=== PATIENT | male | born 1950 | race Caucasian/White ===

== ENCOUNTER 2020-03-16 09:23 | Emergency (ER) | payer MEDICARE, SELFPAY ==
--- NOTE | ~2020-03-16 | CT_ITS ---
EXAMINATION: CT cervical spine [facility] EXAM DATE: 03/16/2020 10:37 INDICATION: Right-sided neck pain, chronic. TECHNIQUE: Spiral CT of the cervical spine was performed without contrast. Axial images were reviewe d. Coronal and sagittal reformatted images were also reviewed. The dose-length product (DLP) for thi s examination was 289.38 mGy-cm. The exposure was tailored according to patient size (auto mA exposu re control), and iterative reconstruction (ASIR) was used as additional dose reduction technique. Counts include 234 beds at the [facility] is no prior study for comparison. FINDINGS: There is moderate to severe disc disease C4-7. 2 mm anterolisthesis C7 on T1 and C3 on C4. The vertebral bodies are otherwise aligned. The odontoid process is intact. The lateral masses of C 1 line up with C2. Prevertebral soft tissue and pre-dens space are within normal limits. There are no acute fractures identified. Completely opacified left ethmoid and maxillary sinuses, mild right eth moid and maxillary mucoperiosteal thickening. Level by level evaluation: C2-C3: Disc does not extend beyond the endplate margin. Uncovertebral joint arthropathy: Mild right. Facet joint arthropathy: Moderate right, mild left. Neural foraminal stenosis: Mild right. Central canal stenosis: No stenosis. C3-C4: There is a mild diffuse disc bulge. Uncovertebral joint arthropathy: Mild to moderate right, mild left. Facet joint arthropathy: Moderate to severe right, mild to moderate left. Neural foraminal stenosis: Moderate right, mild left. Central canal stenosis: Mild. C4-C5: There is a mild diffuse disc bulge. Uncovertebral joint arthropathy: Moderate bilateral. Facet joint arthropathy: Moderate bilateral. Neural foraminal stenosis: Moderate right, mild left. Central canal stenosis: Mild. C5-C6: There is a mild diffuse disc bulge. Uncovertebral joint arthropathy: Moderate to severe bilateral. Facet joint arthropathy: Mild to moderate bilateral. Neural foraminal stenosis: Mild to moderate bilateral. Central canal stenosis: Mild. C6-C7: There is a mild diffuse disc bulge. Uncovertebral joint arthropathy: Moderate to severe right, mild to moderate left. Facet joint arthropathy: Mild bilateral. Neural foraminal stenosis: Moderate right, mild left. Central canal stenosis: Mild. C7-T1: There is a minimal diffuse disc bulge. Uncovertebral joint arthropathy: None. Facet joint arthropathy: Moderate to severe left. Neural foraminal stenosis: Mild to moderate left. Central canal stenosis: No stenosis. IMPRESSION: 1. Advanced lower cervical disc disease, and varying degrees of cervical facet arthropathy as detaile d above. 2. Opacified left ethmoid and maxillary sinuses. Reviewed, dictated and finalized at location B. IMPRESSION: 1. Advanced lower cervical disc disease, and varying degrees of cervical facet arthropathy as detailed above. 2. Opacified left ethmoid and maxillary sinuses.
[2020-03-16 09:34] VITALS: BP 161/81; PULSE 85; RESP 18; TEMP 37.1; O2SAT 97
--- NOTE | 2020-03-16 10:27 | ED.NECK ---
HPI - Neck Pain/Injury General Chief Complaint: Neck Pain/Injury Stated Complaint: Neck pain Time Seen by Provider: 03/16/20 10:06 Source: patient Mode of arrival: ambulatory Limitations: no limitations History of Present Illness HPI Narrative: This is a 69-year-old male that presents the emergency department for right-sided neck pain x3 days. No known recent injury or trauma. He notes an injury to the neck years ago after which she is been having problems with the neck intermittently. Reports pain is on the right side of his neck and radiates into his shoulder. It is worse with movement and relieved with rest. He took ibuprofen last night with some relief. Denies fever, headache, vision changes, vomiting, numbness or weakness. Related Data Home Medications Medication Instructions Recorded Confirmed Symbicort 07/01/19 Allergies Allergy/AdvReac Type Severity Reaction Status Date / Time No Known Allergies Allergy Unverified 03/16/20 09:38 Review of Systems Review of Systems: Narrative: CONSTITUTIONAL: Denies fever EYES: Denies visual changes GASTROINTESTINAL: Denies vomiting SKIN: Denies rash MUSCULOSKELETAL: Reports joint pain, and myalgia. NEUROLOGIC: Denies headache, numbness, or weakness. All systems reviewed & are unremarkable except as noted in HPI and below PMFSH Past Medical History Medical History (Updated 03/16/20 @ 12:03 by Roxana Del Toro PA-C) Emphysema of lung Prostate cancer Surgical History Surgical History H/O bilateral cataract extraction H/O prostate biopsy History of carpal tunnel release Family History Family History (Updated 10/08/18 @ 09:57 by DOCTOR UNKNOWN) Father Family history of malignant neoplasm Social History Social History Smoking status: Former smoker Smoking end date: 06/26/97 Alcohol intake: never Gender identity (if verbalized by the patient): Male Exam Narrative: Exam Narrative: GENERAL: Well-appearing, well-nourished, and in no acute distress. HEAD: Normocephalic, atraumatic. EYES: PERRLA and EOMI. ENT: Nares clear, no rhinorrhea or epistaxis. Mucous membranes moist. Oropharynx without tonsillar hypertrophy exudate or other lesions. Bilateral TMs pearly dove non-bulging NECK: Supple. No adenopathy or masses. No carotid bruits or JVD CHEST: Clear to auscultation. No respiratory distress. No wheezes rales or rhonchi HEART: Regular rate and rhythm. No murmur heard. Normal peripheral pulses. EXTREMITIES: Normal range of motion. No edema. Strength equal in bilateral upper extremities (5/5) SKIN: Warm, dry, no rash. NEURO: No focal deficits. Alert and oriented x3. Cranial nerves II through XII grossly intact PSYCH: Normal mood and affect Course Vital Signs Vital signs: Vital Signs Temperature 98.7 F 03/16/20 09:34 Pulse Rate 85 03/16/20 09:34 Respiratory Rate 18 03/16/20 09:34 Blood Pressure 161/81 H 03/16/20 09:34 Pulse Oximetry 97 03/16/20 09:34 Temperature 98.7 F 03/16/20 09:34 Pulse Rate 85 03/16/20 09:34 Respiratory Rate 18 03/16/20 09:34 Blood Pressure 161/81 H 03/16/20 09:34 Pulse Oximetry 97 03/16/20 09:34 MDM - Neck Pain/Injury MDM Narrative Medical decision making narrative: Patient presents to the emergency department for neck pain times 3 days. No known certain injury or trauma. Patient does report he was kayaking prior to his neck pain starting. Pain seems to be muscular in nature. It is more right-sided and he is tender to palpation of the trapezius musculature. He is neurologically intact. CT scan cervical spine shows cervical disc disease and arthropathy. Patient was updated on case findings. He was given a dose of Toradol with some relief. Will be sent home with muscle relaxer as needed as well. He is to follow-up with his primary care doctor. He was given warnings to return to
[2020-03-16] MEDS: KETOROLAC 30 MG/ML VIAL (*BKC) IM (11:09)
[2020-03-16 12:28] VITALS: BP 160/78; PULSE 86; RESP 18; O2SAT 98
== END 2020-03-16 12:30 | disposition home or self-care (01) ==
PROVIDERS: Emergency Provider Emergency Medicine
DX: M47.812 Spondylosis without myelopathy or radiculopathy, cervical region (principal); S16.1XXA Strain of muscle, fascia and tendon at neck level, initial encounter; Z85.46 Personal history of malignant neoplasm of prostate; J43.9 Emphysema, unspecified; Z98.42 Cataract extraction status, left eye; Z98.41 Cataract extraction status, right eye; Z87.891 Personal history of nicotine dependence; X58.XXXA Exposure to other specified factors, initial encounter
CPT/HCPCS: 72125; 96372; 99284; J1885

== ENCOUNTER 2020-11-19 15:15 | Emergency (ER) | payer MEDICARE, SELFPAY ==
[2020-11-19 15:15] VITALS: BP 153/94; PULSE 104; RESP 18; TEMP 37.6; O2SAT 99
[2020-11-19 16:14] LABS: Add Urine Microscopic? YES; Appearance Urine Clear (Clear); Bilirubin Urine Negative (Negative); Blood Urine 1+ (Negative); Color Urine Yellow (Yellow); Glucose Urine UA Negative (Negative); Ketones Urine Trace (Negative); Leukocyte Esterase Ur Negative (Negative); Nitrate Urine Negative (Negative); Protein Urine Negative (Negative); Urobilinogen Urine 0.2 mg/dL (0.2-1.0); pH Urine 5.5 (5.0-8.0)
[2020-11-19 16:14] LABS: Basophils Absolute Auto 0.03 K/mm3 (0.00-0.10); Basophils Percent Auto 0.2 % (0.0-1.0); Hematocrit 40.8 % (37.0-46.0); Hemoglobin 13.6 g/dL (12.4-15.3); Immature Granulocyte Absolute 0.04 K/mm3 (0.00-0.00); Immature Granulocyte Percent A 0.3 % (0.0-0.0); Lymphocytes Absolute Auto 0.81 K/mm3 (1.10-4.50); Lymphocytes Percent Auto 6.6 % (18.0-42.0); Mean Corpuscular HGB Conc 33.3 g/dL (32.0-36.0); Mean Corpuscular Hemoglobin 30.2 pg (27.0-31.0); Mean Corpuscular Volume 90.7 fL (78.0-102.0); Mean Platelet Volume 9.8 fl (8.7-11.0); Neutrophils Absolute Auto 10.3 K/mm3 (1.7-7.2); Neutrophils Percent Auto 83.9 % (50.0-70.0); Platelet Count Result 256 K/mm3 (150-420); Red Cell Distribution Width 13.3 % (11.6-14.4); White Blood Count 12.3 K/mm3 (4.8-10.8)
[2020-11-19 16:20] LABS: Bacteria Urine Trace /hpf; RBC Urine 0-2 /hpf (0-2); Squamous Epithelial Cell Urine Rare /hpf (Few); WBC Urine 0-3 /hpf (0-3)
[2020-11-19 16:33] LABS: Alanine Aminotransferase 23 U/L (16-63); Albumin Level 3.2 g/dL (3.4-5.0); Alkaline Phosphatase 65 U/L (46-116); Anion Gap 9 mmol/L (8-16); Aspartate Amino Transferase 19 U/L (15-37); Bilirubin,Total 0.6 mg/dL (0.00-1.00); Blood Urea Nitrogen 13 mg/dL (7-18); Carbon Dioxide 26 mmol/L (21-32); Chloride 103 mmol/L (98-108); Estimated CRCL calculation 57 ml/min; Estimated Glomerular Filt Rate > 60; Glucose 121 mg/dL (70-99); Osmolality Calculated 287 mOsm/kg (285-295); Potassium 3.5 mmol/L (3.5-5.1); Sodium 138 mmol/L (136-145); Total Protein 6.6 g/dL (6.4-8.2)
--- NOTE | 2020-11-19 16:38 | ED.FEMALEGU ---
HPI - Female Genitourinary General Chief complaint: Urogenital-Male Stated complaint: trouble urinating Source: patient Mode of arrival: ambulatory Limitations: no limitations History of Present Illness HPI Narrative: this is a 70-year-old male with some past medical history of BPH with prostate cancers followed by urology, recently had surgery on his right hand and was under general anesthesia, for the last couple days he has been having urinary retention and presented today with some inability to pass urine had a bladder distension and tenderness with no fever chills no hematuria no dysuria no chest pain no abdominal pain no shortness of breath no nausea or vomiting. MD elicited complaint: difficulty urinating Onset (ago): day(s) Location of symptoms: suprapubic Related Data Home Medications Medication Instructions Recorded Confirmed budesonide-formoterol [Symbicort] 2 puff INHALATION Q12H 11/19/20 11/19/20 finasteride 5 mg PO DAILY 11/19/20 11/19/20 hydrocodone-acetaminophen 1 tablet PO Q6H PRN 11/19/20 11/19/20 ipratropium-albuterol [Combivent 1 puff INHALATION QID 11/19/20 11/19/20 Respimat] Allergies Allergy/AdvReac Type Severity Reaction Status Date / Time No Known Allergies Allergy Unverified 03/16/20 09:38 Review of Systems Review of Systems: All systems reviewed & are unremarkable except as noted in HPI and below PMFSH Past Medical History Medical History Emphysema of lung Prostate cancer Surgical History Surgical History H/O bilateral cataract extraction H/O prostate biopsy History of carpal tunnel release Family History Family History Father Family history of malignant neoplasm Social History Social History Smoking status: Former smoker Smoking end date: 06/26/97 Alcohol intake: never Gender identity (if verbalized by the patient): Male Exam Const: General: no acute distress Orientation/consciousness: patient oriented x3 HENMT: Head: normal to inspection Eyes: Conjunctivae: conjunctivae normal Pupils: Equal, round and reactive pupils present Neck: Neck: normal visual inspection, no lymphadenopathy and no meningeal signs Chest: Chest palpation & inspection: normal inspection of the chest Resp: Effort & Inspection: normal respiratory effort Auscultation: clear to auscultation bilaterally Cardio: Rate: regular rate Rhythm: regular rhythm GI: GI Palp: Yes Soft to palpation Other: Suprapubic tenderness with palpation and distension : General: Yes Bladder palpation abnormal ( distended with tenderness with palpation) Urinary Catheter: Urinary Catheter: urine clear Back/Spine/Pelvis: Back: no CVA tenderness Skin: General skin exam: normal color Rashes: no rashes Neuro: General: patient oriented x3, moves all extremities, no meningeal signs and no focal motor deficits Psych: Mental Status: mental status grossly normal Thought content: Yes Normal thought content present Course Course Emergency Course: bladder scan revealed more than L of urine in his bladder Prabhakar was placed and immediate relief of discomfort in his bladder with some large amount of urine that drained. Will continue the Prabhakar catheter does have an appointment with his urologist on Monday. Vital Signs Vital signs: Vital Signs Temperature 37.6 C 11/19/20 15:15 Pulse Rate 104 H 11/19/20 15:15 Respiratory Rate 18 11/19/20 15:15 Blood Pressure 153/94 H 11/19/20 15:15 Pulse Oximetry 99 11/19/20 15:15 Temperature 37.6 C 11/19/20 15:15 Pulse Rate 104 H 11/19/20 15:15 Respiratory Rate 18 11/19/20 15:15 Blood Pressure 153/94 H 11/19/20 15:15 Pulse Oximetry 99 11/19/20 15:15 MDM - Female Genitourinary Lab Data Result diagrams:
== END 2020-11-19 16:50 | disposition home or self-care (01) ==
PROVIDERS: Emergency Provider Emergency Medicine
DX: R33.9 Retention of urine, unspecified (principal)
CPT/HCPCS: 36415; 80053; 81001; 85025; 99282; 99283

== ENCOUNTER 2020-11-25 00:42 | Emergency (ER) | payer MEDICARE, SELFPAY ==
[2020-11-25 01:12] VITALS: BP 176/93; PULSE 87; RESP 16; TEMP 36.2; O2SAT 98
--- NOTE | 2020-11-25 01:33 | PC.NURSE ---
Pt reports feeling much better after niño cath placement. Urine is clear. No blood.
--- NOTE | 2020-11-25 02:20 | ED.MALEGU ---
HPI - Male Genitourinary General Chief complaint: Urogenital-Male Stated complaint: unable to urinate since 1600 Time Seen by Provider: 11/25/20 02:05 Source: patient Limitations: no limitations History of Present Illness HPI Narrative: Patient is 70 years old white male presented to the ED with inability to urinate since 4 PM yesterday. Patient status post right hand surgery 1 week ago, 2 days later was not able to urinate required Prabhakar catheter placement which been removed yesterday by his urologist. Few hours later patient was not able to urinate again. Patient denies any fever, chills, nausea, vomiting, diarrhea, constipation. Patient is not taking any narcotics. Related Data Home Medications Medication Instructions Recorded Confirmed budesonide-formoterol [Symbicort] 2 puff INHALATION Q12H 11/19/20 11/19/20 finasteride 5 mg PO DAILY 11/19/20 11/19/20 hydrocodone-acetaminophen 1 tablet PO Q6H PRN 11/19/20 11/19/20 ipratropium-albuterol [Combivent 1 puff INHALATION QID 11/19/20 11/19/20 Respimat] Allergies Allergy/AdvReac Type Severity Reaction Status Date / Time No Known Allergies Allergy Verified 11/25/20 00:44 Review of Systems Review of Systems: Narrative: CONSTITUTIONAL: Denies fever, chills, or sweats. EYES: Denies visual changes, redness, or discharge. ENT: Denies rhinorrhea, congestion, sore throat, or otalgia. CARDIOVASCULAR: Denies chest pain, palpitations, or edema. RESPIRATORY: Denies cough or dyspnea. GASTROINTESTINAL: Denies abdominal pain, nausea, vomiting, or diarrhea. GENITOURINARY: Denies dysuria or hematuria. SKIN: Denies rash or itching. MUSCULOSKELETAL: Denies back pain, joint pain, or myalgia. NEUROLOGIC: Denies headache, numbness, or weakness. PSYCHIATRIC: Denies anxiety or depression. [facility] Past Medical History Medical History Emphysema of lung Prostate cancer Surgical History Surgical History H/O bilateral cataract extraction H/O prostate biopsy History of carpal tunnel release Family History Family History Father Family history of malignant neoplasm Social History Social History Smoking status: Former smoker Smoking end date: 06/26/97 Alcohol intake: never Gender identity (if verbalized by the patient): Male Exam Narrative: Exam Narrative: General appearance: Well-developed, well-nourished Skin: Normal color Chest and respiratory: Airway patent, no respiratory distress, no accessory muscle use Heart: Regular rate/rhythm Abdomen: Soft, suprapubic tenderness and distention Vascular: Normal peripheral pulses, normal capillary refill. Neurologic: Alert and oriented ?3, [employer] is normal as tested, no gross motor deficit Course Course Emergency Course: Improving after after Prabhakar catheter placement, 1600 mL of urine output. Patient feeling great and ready to go home Vital Signs Vital signs: Vital Signs Temperature 36.2 C L 11/25/20 01:12 Pulse Rate 87 11/25/20 01:12 Respiratory Rate 16 11/25/20 01:12 Blood Pressure 176/93 H 11/25/20 01:12 Pulse Oximetry 98 11/25/20 01:12 Temperature 36.2 C L 11/25/20 01:12 Pulse Rate 87 11/25/20 01:12 Respiratory Rate 16 11/25/20 01:12 Blood Pressure 176/93 H 11/25/20 01:12 Pulse Oximetry 98 11/25/20 01:12 MDM - Male Genitourinary MDM Narrative Medical decision making narrative: Urinary retention, Prabhakar catheter placement ordered. Further plan to follow Critical Care Time Critical Ca
[2020-11-25 02:35] VITALS: BP 142/81; PULSE 78; RESP 16; O2SAT 97
== END 2020-11-25 02:35 | disposition home or self-care (01) ==
PROVIDERS: Emergency Provider Emergency Medicine
DX: R33.9 Retention of urine, unspecified (principal); J43.9 Emphysema, unspecified; Z85.46 Personal history of malignant neoplasm of prostate; Z98.42 Cataract extraction status, left eye; Z98.41 Cataract extraction status, right eye; Z87.891 Personal history of nicotine dependence; Z98.890 Other specified postprocedural states
CPT/HCPCS: 99283

== ENCOUNTER 2020-12-09 16:30 | Emergency (ER) | payer MEDICARE, SELFPAY ==
[2020-12-09 16:39] VITALS: BP 173/87; PULSE 131; RESP 15; TEMP 36.6; O2SAT 98
--- NOTE | 2020-12-09 17:00 | ED.ABDPAIN ---
HPI - Abdominal Pain General Chief Complaint: Urogenital-Male Stated Complaint: Unable to Urinate Time Seen by Provider: 12/09/20 16:38 Source: patient Mode of arrival: ambulatory Limitations: no limitations History of Present Illness HPI narrative: 70-year-old with a history of prostate CA, urinary retention s/p right wrist surgery 2 weeks ago here with complaints of unable to urinate since this morning. Patient states that he was seen a week ago for the same had a urinary catheter put in which was discontinued this morning at the doctor's office. Patient states that soon after he returned home he had about 125 mL of urine output and ever since then he is unable to urinate. He presented to the ER with lower abdominal discomfort. He denies any fever or chills. MD elicited complaint: abdominal pain and other (unable to urinate) Pertinent past history: other (Prostate Ca) Onset (ago): day(s) (1) Location: suprapubic Severity: moderate Quality: fullness Exacerbating factors: nothing Relieving factors: nothing Associated symptoms: denies other symptoms Related Data Home Medications Medication Instructions Recorded Confirmed budesonide-formoterol [Symbicort] 2 puff INHALATION Q12H 11/19/20 11/19/20 finasteride 5 mg PO DAILY 11/19/20 11/19/20 hydrocodone-acetaminophen 1 tablet PO Q6H PRN 11/19/20 11/19/20 ipratropium-albuterol [Combivent 1 puff INHALATION QID 11/19/20 11/19/20 Respimat] Allergies Allergy/AdvReac Type Severity Reaction Status Date / Time No Known Allergies Allergy Verified 11/25/20 00:44 Review of Systems Review of Systems: All systems reviewed & are unremarkable except as noted in HPI and below Constitutional: Constitutional: Reports no additional constitutional complaints Eyes: Eyes: Reports no additional eye complaints ENT: Reports system reviewed and no additional complaints, except as documented Cardiovascular: Cardiovascular: Reports no additional cardiovascular complaints Respiratory: Respiratory: Reports no additional respiratory complaints Gastrointestinal: Gastrointestinal: Reports as per HPI Genitourinary: Genitourinary: Reports as per HPI Musculoskeletal: Musculoskeletal: Reports no additional musculoskeletal complaints Integumentary/Breasts: Skin/Breast: Reports system reviewed and no additional complaints, except as docu Neurologic: Reports system reviewed and no additional complaints, except as documented Psychiatric: Psychiatric: Reports no additional psychiatric complaints PMFSH Past Medical History Medical History Emphysema of lung Prostate cancer Surgical History Surgical History H/O bilateral cataract extraction H/O prostate biopsy History of carpal tunnel release Family History Family History Father Family history of malignant neoplasm Social History Social History Smoking status: Former smoker Smoking end date: 06/26/97 Alcohol intake: never Gender identity (if verbalized by the patient): Male Exam Narrative: Exam Narrative: GENERAL: Well-appearing, well-nourished, and in no acute distress. HEAD: Normocephalic, atraumatic. EYES: PERRLA and EOMI. NECK: Supple. CHEST: Clear to auscultation. No respiratory distress. HEART: Regular rate and rhythm. No murmur heard. Normal peripheral pulses. ABDOMEN: Soft, nondistended, suprapubic tenderness ,normal active bowel sounds. EXTREMITIES: Normal range of motion. No edema. Right wrist in splint SKIN: Warm, dry, no rash. NEURO: No focal deficits. Alert and oriented x3. PSYCH: Normal mood and affect. Course Course Emergency Course: Patient had a Prabhakar catheter placed here had 1000 mL of urine straw-colored. He is feeling much better. Advised to him to continue Prabhakar catheter and follow-u
[2020-12-09 18:20] VITALS: BP 129/69; PULSE 87; RESP 16; O2SAT 98
== END 2020-12-09 18:20 | disposition home or self-care (01) ==
PROVIDERS: Emergency Provider Family Medicine
DX: R33.9 Retention of urine, unspecified (principal); J43.9 Emphysema, unspecified; Z85.46 Personal history of malignant neoplasm of prostate; Z87.891 Personal history of nicotine dependence; Z98.42 Cataract extraction status, left eye; Z98.41 Cataract extraction status, right eye
CPT/HCPCS: 51702; 99283

== ENCOUNTER 2022-05-26 13:18 | Emergency (ER) | payer MEDICARE, SELFPAY ==
[2022-05-26] VITALS (10 sets, daily range): BP systolic 145–184; BP diastolic 71–79; PULSE 83–104; RESP 12–21; TEMP 37.6; O2SAT 94–99
--- NOTE | ~2022-05-26 | CT_ITS ---
EXAMINATION: CT brain & sinus wo con DATE: 05/26/2022 18:20 INDICATION: Left-sided facial pain. Blurred vision. TECHNIQUE: Computed tomography (CT) of the brain and sinuses was performed without intravenous contra st. The dose-length product was 832.33 mGy-cm. Automated exposure control and iterative reconstructio n technique were employed. COMPARISON: No prior studies for comparison. FINDINGS: No acute intracranial hemorrhage, infarction, mass or mass effect. Mild generalized atrophy . There are scattered mild periventricular and subcortical white matter changes, most likely related to small vessel ischemic disease (microangiopathy). Basilar cisterns are patent. There is near comple te opacification of the left maxillary sinus. There is mucosal thickening of the left ethmoid air yasmin ls. Mastoids are pneumatized. No depressed skull fractures. There is mild mucosal thickening of the r ight maxillary sinus. IMPRESSION: 1. No acute intracranial abnormality. 2: Moderate sinusitis. 3: Chronic age-related findings. Reviewed, dictated and finalized at location A. T [employer]
--- NOTE | ~2022-05-26 | CT_ITS ---
EXAMINATION: CT facial bones w con DATE: 05/26/2022 18:27 INDICATION: Left maxillary pain. TECHNIQUE: Computed tomography (CT) of the facial bones was performed with 75 cc intravenous contrast . The dose-length product was 312.52 mGy-cm. COMPARISON: None FINDINGS: There is sinusitis involving the left maxillary, ethmoid, left frontal and right maxillary sinuses as well as the left sphenoid sinus. Streak artifact from dental amalgam limits evaluation for evaluation for dental abscess. The orbits are symmetric. No significant abnormality of the lamina papyracea. The mucosal and parapha ryngeal spaces are symmetric. IMPRESSION: 1. Evaluation for dental abscess limited by significant streak artifact from dental amalgam. No defin ite abscess identified. 2: Moderate sinusitis. Reviewed, dictated and finalized at location A. [facility] [employer] IMPRESSION: 1. Evaluation for dental abscess limited by significant streak artifact from de ntal amalgam. No definite abscess identified. 2: Moderate sinusitis.
--- NOTE | 2022-05-26 13:54 | ECG_ITS ---
Measurements Intervals [place] Rate: 87 P: 75 AK: 186 QRS: 68 QRSD: 105 T: 79 QT: 330 QTc: 398 Interpretive Statements SINUS RHYTHM COMPARED TO ECG 07/01/2019 08:59:19 NO SIGNIFICANT CHANGES Electronically Signed On 05-26-2022 14:46:44 [employer] by Rachel Rogers M.D.
--- NOTE | 2022-05-26 13:55 | PC.NURSE ---
EDP Dalton notified of patient's signs and symptoms. Per EDP, order stroke protocol without CT scan of head at this time.
[2022-05-26 14:43] LABS: Basophils Percent Auto 0.2 % (0.2-1.2); Hematocrit 47.5 % (42.0-52.0); Hemoglobin 15.6 g/dL (14.0-18.0); Immature Granulocyte Absolute 0.07 K/mm3 (0.00-0.031); Immature Granulocyte Percent A 0.4 % (0-0.5); Lymphocytes Absolute Auto 1.12 K/mm3 (0.9-3.2); Lymphocytes Percent Auto 6.1 % (18.3-44.2); Mean Corpuscular HGB Conc 32.8 g/dl (32-36); Mean Corpuscular Hemoglobin 30.2 pg (26-34); Mean Corpuscular Volume 92.1 fl (80-100); Mean Platelet Volume 9.3 fl (7.4-10.4); Monocytes Absolute Auto 1.1 K/mm3 (0.1-0.6); Monocytes Percent Auto 5.9 % (2.6-8.5); Neutrophils Absolute Auto 16.1 K/mm3 (1.3-6.7); Neutrophils Percent Auto 87.4 % (45.5-73.1); Platelet Count Result 330 k/mm3 (150-375); Red Blood Count 5.16 M/mm3 (4.6-6.20); Red Cell Distribution Width 13.7 % (11.5-14.5); White Blood Count 18.4 K/mm3 (4.5-10.0)
[2022-05-26 14:53] LABS: Alanine Aminotransferase 18 U/L (6-50); Albumin Level 4.6 g/dL (3.5-5.1); Alkaline Phosphatase 83 U/L (38-126); Anion Gap 9 mmol/L (8-16); Aspartate Amino Transferase 21 U/L (17-59); Bilirubin,Total 0.7 mg/dL (0.2-1.3); Blood Urea Nitrogen 11 mg/dL (9-20); Calcium 9.4 mg/dL (8.4-10.2); Carbon Dioxide 26 mmol/L (22-30); Chloride 97 mmol/L (98-107); Estimated CRCL calculation 79 ml/min; Estimated Glomerular Filt Rate > 60; Glucose 127 mg/dL (65-110); Potassium 4.4 mmol/L (3.4-5.0); Sodium 132 mmol/L (137-145)
[2022-05-26 15:03] LABS: INR 1.1; Prothrombin Time 13.3 Seconds (11.1-14.7)
[2022-05-26 15:04] LABS: Troponin I < 0.012 ng/mL (0.000-0.034)
--- NOTE | 2022-05-26 17:38 | ED.HA ---
HPI - Headache General Chief Complaint: Headache Stated Complaint: left facial pain/ headache Time Seen by Provider: 05/26/22 17:13 History of Present Illness HPI Narrative: 72-year-old male history of prostate cancer presented with left-sided facial pain. Per patient, he was in his usual state of health until about 3 days ago, around this time he started noting left cheek pain. This has been associated with left eye blurriness, with associated pain with left gaze. He denied nausea, vomiting, fevers, chills, chest pain, shortness of breath, abdominal pain, sick contacts. He reports that he had a recent dental procedure, was prescribed antibiotics however he was unable to take all the antibiotics as prescribed, due to insurance issues. Related Data Home Medications Medication Instructions Recorded Confirmed budesonide-formoterol HFA 160 2 puff inhalation Q12H 11/19/20 11/19/20 mcg-4.5 mcg/actuation aerosol inhaler (Symbicort) finasteride 5 mg tablet 5 mg PO DAILY 11/19/20 11/19/20 hydrocodone 5 mg-acetaminophen 325 1 tablet PO Q6H PRN Pain 11/19/20 11/19/20 mg tablet ipratropium 20 mcg-albuterol 100 1 puff inhalation QID 11/19/20 11/19/20 mcg/actuation mist for inhalation (Combivent Respimat) Allergies Allergy/AdvReac Type Severity Reaction Status Date / Time No Known Allergies Allergy Verified 11/25/20 00:44 Review of Systems Review of Systems: CONSTITUTIONAL: Denies fever, chills, or sweats. EYES: Reports left eye blurriness, denies right sided eye changes ENT: Denies rhinorrhea, congestion, sore throat, or otalgia. CARDIOVASCULAR: Denies chest pain, palpitations, or edema. RESPIRATORY: Denies cough or dyspnea. GASTROINTESTINAL: Denies abdominal pain, nausea, vomiting, or diarrhea. GENITOURINARY: Denies dysuria or hematuria. SKIN: Denies rash or itching. MUSCULOSKELETAL: Denies back pain, joint pain, or myalgia. NEUROLOGIC: Denies headache, numbness, or weakness. PSYCHIATRIC: Denies anxiety or depression. [facility] Past Medical History Medical History Emphysema of lung Prostate cancer Surgical History Surgical History H/O bilateral cataract extraction H/O prostate biopsy History of carpal tunnel release Family History Family History Father Family history of malignant neoplasm Social History Social History Smoking status: Former smoker Smoking end date: 06/26/97 Alcohol intake: never Gender identity (if verbalized by the patient): Male Exam Narrative: APPEARANCE: Alert, calm and cooperative, no acute distress, phonating, sitting comfortably during visit HEAD: atraumtaic EYES: Pupils equal round an reactive to light, extra ocular movements intact, patient reporting mild pain to left eye with leftward gaze, no proptosis, no surrounding erythema, no conjunctival injection NOSE: Normal no drainage NECK: Supple, without meningismus RESPIRATORY: Lungs clear to auscultation bilaterally, no wheezes/rales/rhonchi, breathing comfortably CARDIOVASCULAR: Regular rate and rhythm, no visible jugular venous distension ABDOMINAL: Soft, nontender, nondistended, no guarding, no rebound/peritoneal signs, no costovertebral tenderness to palpation BACK: no midline tenderness to palpation, no step offs EXTREMITIES: No edema, palpable peripheral pulses, warm, well perfused, no tenderness to bilateral calves. NEURO: Alert and oriented x3, moving all extremities symmetrically, 5/5 strength throughout, normal finger nose finger, no pronator drift, negative Romberg test, no truncal ataxia, sensation grossly intact, ambulating without deficit SKIN:: Warm, dry. Normal Color PSYCHIATRIC: Normal affect/mood Course Reevaluation(s) Reevaluation #1: Patient reassessed, continues to be well-appearing without a
[2022-05-26] MEDS: IBUPROFEN 400 MG TABLET PO (18:07)
[2022-05-26] MEDS: ACETAMINOPHEN 325 MG TABLET 650 MG PO (18:08)
--- NOTE | 2022-05-26 18:27 | PC.NURSE ---
Assumed care of pt, bedside report received from Cat RN, pt in CT scan via stretcher at this time.
[2022-05-26] MEDS: AMOXICILLIN/CLAVULANATE K 875-125 MG TAB 1 TABLET PO (19:14)
== END 2022-05-26 19:29 | disposition home or self-care (01) ==
PROVIDERS: Emergency Medicine; Emergency Provider Emergency Medicine
DX: J32.9 Chronic sinusitis, unspecified (principal); J43.9 Emphysema, unspecified; Z85.46 Personal history of malignant neoplasm of prostate; Z98.42 Cataract extraction status, left eye; Z98.41 Cataract extraction status, right eye
CPT/HCPCS: 36415; 70450; 70486; 70487; 70488; 80053; 84484; 85025; 85610; 85730; 93005; 99284; A9270; Q9967

== ENCOUNTER → 2023-04-28 07:57 | Outpatient (CLI) | payer MEDICARE, SELFPAY ==
--- NOTE | ~2023-04-28 | CT_ITS ---
EXAMINATION: CT sinus wo con DATE: 04/28/2023 08:37 INDICATION: Chronic sinusitis TECHNIQUE: Computed tomography (CT) of the paranasal sinuses was performed without contrast. Iterativ e reconstruction technique was employed. Exam dose: 411.72 mGy-cm total exam DLP. COMPARISON: 05/26/2022 CT brain and sinuses FINDINGS: There is leftward deviation of the nasal septum. There is prominent soft tissue swelling of the nasal turbinates bilaterally. There is eneida bullosa of the right middle nasal turbinate. The ostiomeatal units are completely opacified. There is complete opacification of the left frontal sinus and nearly complete opacification of the ri ght frontal sinus. There is complete opacification of the ethmoid air cells and maxillary sinuses. There is prominent mucoperiosteal thickening of the sphenoid sinuses. The mastoid air cells are normally developed and aerated bilaterally. Middle and inner ear apparatus appear normal bilaterally. IMPRESSION: Leftward deviation of nasal septum Prominent soft tissue swelling of the nasal turbinates Eneida bullosa of right middle nasal turbinate Complete opacification of the ostiomeatal units Complete or nearly complete opacification of bilateral frontal, ethmoid and maxillary sinuses promine nt mucoperiosteal thickening of the sphenoid sinuses Normal mastoid air cells Reviewed, dictated and finalized at [facility]. Reviewed, dictated and finalized at location [facility]. IMPRESSION: Leftward deviation of nasal septum Prominent soft tissue swelling of the nasal turbinates Eneida bullosa of right middle nasal turbinate Complete opacification of the ostiomeatal units Complete or nearly complete opacification of bilateral frontal, ethmoid and max illary sinuses prominent mucoperiosteal thickening of the sphenoid sinuses Normal mastoid air cells
== END ==
PROVIDERS: PCP Family Medicine; Visit Provider Otolaryngology
DX: J32.9 Chronic sinusitis, unspecified (principal); J34.2 Deviated nasal septum
CPT/HCPCS: 70486